=== PATIENT | female | born 2000 | race Asian ===

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

== ENCOUNTER 2021-09-08 16:37 | Inpatient (IN) | payer SELFPAY ==
--- NOTE | 2021-09-08 17:32 | Emergency Department Report ---
- General Chief complaint: Skin/Abscess/Foreign Body Stated complaint: ABCESS RT BREAST Source: patient Mode of arrival: Ambulatory Limitations: No Limitations - History of Present Illness Initial comments: Is a 21-year-old female presenting to the emergency department with concern for pain and swelling of the right breast. Patient reports she has history of having nipple piercings but does not currently have these in place. She states she first noticed the pain and swelling 3 days ago. She denies having any fevers. She denies family history of breast cancer. - Related Data Previous Rx's Medication Instructions Recorded Last Taken Type Amoxicillin 500 mg PO BID #20 capsule 08/19/18 Unknown Rx Cetirizine HCl [ZyrTEC] 10 mg PO DAILY #30 capsule 08/19/18 Unknown Rx Fluticasone [Flonase] 1 spray NS QDAY #1 bottle 08/19/18 Unknown Rx Amoxicillin [Amoxicillin TAB] 875 mg PO BID #20 tablet 09/05/18 Unknown Rx Ibuprofen [Motrin] 600 mg PO Q8H PRN #20 tablet 09/05/18 Unknown Rx Nystas/Diphen/Xyl Visc/Mylanta 15 ml MM Q6H PRN 5 Days ml 09/05/18 Unknown Rx [Magic Mouthwash] Allergies Allergy/AdvReac Type Severity Reaction Status Date / Time No Known Allergies Allergy Verified 09/08/21 17:19 Abscess Boil HPI - HPI Chief Complaint: Skin/Abscess/Foreign Body Stated Complaint: ABCESS RT BREAST Home Medications: Previous Rx's Medication Instructions Recorded Last Taken Type Amoxicillin 500 mg PO BID #20 capsule 08/19/18 Unknown Rx Cetirizine HCl [ZyrTEC] 10 mg PO DAILY #30 capsule 08/19/18 Unknown Rx Fluticasone [Flonase] 1 spray NS QDAY #1 bottle 08/19/18 Unknown Rx Amoxicillin [Amoxicillin TAB] 875 mg PO BID #20 tablet 09/05/18 Unknown Rx Ibuprofen [Motrin] 600 mg PO Q8H PRN #20 tablet 09/05/18 Unknown Rx Nystas/Diphen/Xyl Visc/Mylanta 15 ml MM Q6H PRN 5 Days ml 09/05/18 Unknown Rx [Magic Mouthwash] Allergies/Adverse Reactions: Allergies Allergy/AdvReac Type Severity Reaction Status Date / Time No Known Allergies Allergy Verified 09/08/21 17:19 ED Review of Systems ROS: Stated complaint: ABCESS RT BREAST Other details as noted in HPI Constitutional: denies: chills, fever Eyes: denies: eye pain, eye discharge, vision change ENT: denies: ear pain, throat pain Respiratory: denies: cough, shortness of breath, wheezing Cardiovascular: denies: chest pain, palpitations Endocrine: no symptoms reported Gastrointestinal: denies: abdominal pain, nausea, diarrhea Genitourinary: denies: urgency, dysuria, discharge Musculoskeletal: denies: back pain, joint swelling, arthralgia Skin: other (abscess). denies: rash, lesions Neurological: denies: headache, weakness, paresthesias Psychiatric: denies: anxiety, depression Hematological/Lymphatic: denies: easy bleeding, easy bruising ED Past Medical Hx - Past Medical History Previous Medical History?: No - Surgical History Past Surgical History?: Yes Additional Surgical History: left wrist broken, repaired surgivally - Social History Smoking Status: Never Smoker Substance Use Type: Alcohol, Marijuana - Medications Home Medications: Home Medications Medication Instructions Recorded Confirmed Last Taken Type Amoxicillin 500 mg PO BID #20 capsule 08/19/18 Unknown Rx Cetirizine HCl [ZyrTEC] 10 mg PO DAILY #30 capsule 08/19/18 Unknown Rx Fluticasone [Flonase] 1 spray NS QDAY #1 bottle 08/19/18 Unknown Rx Amoxicillin [Amoxicillin TAB] 875 mg PO BID #20 tablet 09/05/18 Unknown Rx Ibuprofen [Motrin] 600 mg PO Q8H PRN #20 tablet 09/05/18 Unknown Rx Nystas/Diphen/Xyl Visc/Mylanta 15 ml MM Q6H PRN 5 Days ml 09/05/18 Unknown Rx [Magic Mouthwash] ED Physical Exam - General Limitations: No Limitations General appearance: alert, in no apparent distress - Head Head exam: Present: atraumatic, normocephalic - Eye Eye exam: Present: normal appearance - ENT ENT exam: Present: mucous membranes moist - Neck Neck exam: Present: normal inspection - Respiratory Respiratory exam: Present: normal lung sounds bilaterally. Absent: respiratory distress - Cardiovascular Cardiovascular Exam: Present: regular rate, normal rhythm. Absent: systolic murmur, diastolic murmur, rubs, gallop - GI/Abdominal GI/Abdominal exam: Present: soft, normal bowel sounds. Absent: distended, tenderness - Extremities Exam Extremities exam: Present: normal inspection - Back Exam Back exam: Present: normal inspection - Neurological Exam Neurological exam: Present: alert, oriented X3 - Psychiatric Psychiatric exam: Present: normal affect, normal mood - Skin Skin exam: Present: warm, dry, intact, normal color, rash, other (There is approximately 3 x 3 cm area of fluctuance that is at the 3 o'clock position at the areola of the right breast. There is a redness that extends up into the breast. There is tenderness noted.) ED Course Vital Signs 09/08/21 09/08/21 09/08/21 16:52 17:05 17:25 Temperature 98.8 F Pulse Rate 119 H 109 H 105 H Respiratory 18 21 15 Rate Blood Pressure 150/91 Blood Pressure 125/78 [Right] O2 Sat by Pulse 99 100 100 Oximetry 09/08/21 09/08/21 09/08/21 17:30 17:46 18:00 Temperature Pulse Rate 96 H 96 H 99 H Respiratory 15 13 17 Rate Blood Pressure 141/66 147/85 Blood Pressure [Right] O2 Sat by Pulse 99 99 99 Oximetry 09/08/21 09/08/21 09/08/21 18:16 18:30 18:46 Temperature Pulse Rate 105 H 105 H 106 H Respiratory 12 17 15 Rate Blood Pressure 129/70 167/83 150/75 Blood Pressure [Right] O2 Sat by Pulse 100 100 99 Oximetry 09/08/21 19:00 Temperature Pulse Rate 105 H Respiratory 16 Rate Blood Pressure 131/80 Blood Pressure [Right] O2 Sat by Pulse 100 Oximetry - Consultations Consultation #1: 09/08/21 17:[address] Humphreys who recommends patient be admitted. Her partner has specialization in breast surgery and will evaluate the patient in the morning. She recommends that we start patient on clindamycin and obtain a formal ultrasound. ED Medical Decision Making - Lab Data Result diagrams: 09/08/21 17:48 09/08/21 18:01 - Medical Decision Making Patient is a 21-year-old female presents emergency department complaint of swelling and pain to the right breast. On exam patient has a area of fluct uance. Bedside ultrasound reveals pocket of pus. Given this plan to discuss with general surgery on-call. Patient will likely require referral to a breast surgeon. Critical care attestation.: If time is entered above; I have spent that time in minutes in the direct care of this critically ill patient, excluding procedure time. ED Disposition Clinical Impression: Breast abscess, Cellulitis of breast Disposition: 09 ADMITTED INPATIENT Is pt being admited?: Yes Does the pt Need Aspirin: No Condition: Stable
[2021-09-08] MEDS ORDERED: SODIUM CHLORIDE 0.9% 1000 ML 1,000 ML IV ONE (17:48)
[2021-09-08 18:20] LABS: Basophils # (Auto) 0.1 K/mm3 (0.0-0.1); Basophils % (Auto) 0.8 % (0.0-1.8); Eosinophils # (Auto) 0.1 K/mm3 (0.0-0.4); Eosinophils % (Auto) 0.4 % (0.0-4.3); Hematocrit 41.2 % (30.3-42.9); Hemoglobin 13.5 gm/dl (10.1-14.3); Lymphocytes # (Auto) 2.1 K/mm3 (1.2-5.4); Lymphocytes % (Auto) 15.2 % (13.4-35.0); Mean Corpuscular HGB Conc 33 % (30-34); Mean Corpuscular Volume 90 fl (79-97); Monocytes % (Auto) 6.8 % (0.0-7.3); Platelet Count 352 K/mm3 (140-440); Red Blood Count 4.58 M/mm3 (3.65-5.03); Red Cell Distribution Width 13.8 % (13.2-15.2)
[2021-09-08 18:42] LABS: Alanine Aminotransferase 10 units/L (7-56); Albumin 4.5 g/dL (3.9-5); Blood Urea Nitrogen 6 mg/dL (7-17); Calcium 9.5 mg/dL (8.4-10.2); Hemolysis Index 9
[2021-09-08 18:43] LABS: BUN/Creatinine Ratio 9
[2021-09-08 19:51] LABS: HCG Qualitative,Urine Negative (Negative)
--- NOTE | 2021-09-08 19:56 | History and Physical Report ---
History of Present Illness Date of examination: 09/08/21 Date of admission: September 08, 2021 Chief complaint: Right breast swelling and pain for 1 week History of present illness: 21-year-old -[place] female with no significant past medical history. Comes in for pain and swelling of the right. Patient recently had her nipples pierced after which she developed redness and swelling and pain over the last 3 days. No fever or chills. Pain is about 8 on a scale of 1-10. She went to see her physician who prescribed her amoxicillin. No exacerbating or relieving factors. - Past Medical History -- No - Surgical History --left wrist broken, repaired surgically - Social History --Smoking Status: Never Smoker --Substance Use Type: Alcohol, Marijuana -Family history --Htn Review of Systems ROS: Stated complaint: ABCESS RT BREAST Other details as noted in HPI Constitutional: denies: chills, fever Eyes: denies: eye pain, eye discharge, vision change ENT: denies: ear pain, throat pain Respiratory: denies: cough, shortness of breath, wheezing Cardiovascular chest right breast swelling and severe pain Endocrine: no symptoms reported Gastrointestinal: denies: abdominal pain, nausea, diarrhea Genitourinary: denies: urgency, dysuria, discharge Musculoskeletal: denies: back pain, joint swelling, arthralgia Skin: other (abscess). denies: rash, lesions Neurological: denies: headache, weakness, paresthesias Psychiatric: denies: anxiety, depression Hematological/Lymphatic: denies: easy bleeding, easy bruising Medications and Allergies Allergies Allergy/AdvReac Type Severity Reaction Status Date / Time No Known Allergies Allergy Verified 09/08/21 17:19 Home Medications Medication Instructions Recorded Confirmed Last Taken Type Amoxicillin 500 mg PO BID #20 capsule 08/19/18 Unknown Rx Cetirizine HCl [ZyrTEC] 10 mg PO DAILY #30 capsule 08/19/18 Unknown Rx Fluticasone [Flonase] 1 spray NS QDAY #1 bottle 08/19/18 Unknown Rx Amoxicillin [Amoxicillin TAB] 875 mg PO BID #20 tablet 09/05/18 Unknown Rx Ibuprofen [Motrin] 600 mg PO Q8H PRN #20 tablet 09/05/18 Unknown Rx Nystas/Diphen/Xyl Visc/Mylanta 15 ml MM Q6H PRN 5 Days ml 09/05/18 Unknown Rx [Magic Mouthwash] Exam - Constitutional Vitals: Temp Pulse Resp BP Pulse Ox 98.8 F 105 H 16 131/80 100 09/08/21 16:52 09/08/21 19:00 09/08/21 19:00 09/08/21 19:00 09/08/21 19:00 General appearance: Present: no acute distress, well-nourished - EENT Eyes: Present: PERRL ENT: hearing intact, clear oral mucosa - Neck Neck: Present: supple, normal ROM - Respiratory Respiratory effort: normal Respiratory: bilateral: CTA Details: Chest--right breast swollen and tender 6 cm X 6 cm - Cardiovascular Heart rate: 78 Rhythm: regular Heart Sounds: Present: S1 & S2. Absent: rub, click - Extremities Extremities: pulses symmetrical, No edema Peripheral Pulses: within normal limits - Abdominal General gastrointestinal: Present: soft, non-tender, non-distended, normal bowel sounds Female genitourinary: Present: normal - Rectal Rectal Exam: deferred - Integumentary Integumentary: Present: clear, warm, dry - Musculoskeletal Musculoskeletal: gait normal, strength equal bilaterally - Psychiatric Psychiatric: appropriate mood/affect, intact judgment & insight - Neurologic Neurologic: CNII-XII intact, moves all extremities - Allied Health Allied health notes reviewed: nursing, case management Results - Labs CBC & Chem 7: 09/08/21 17:48 09/08/21 18:01 Labs: Laboratory Last Values WBC 14.1 K/mm3 (4.5-11.0) H 09/08/21 17:48 RBC 4.58 M/mm3 (3.65-5.03) 09/08/21 17:48 Hgb 13.5 gm/dl (10.1-14.3) 09/08/21 17:48 Hct 41.2 % (30.3-42.9) 09/08/21 17:48 MCV 90 fl (79-97) 09/08/21 17:48 MCH 30 pg (28-32) 09/08/21 17:48 MCHC 33 % (30-34) 09/08/21 17:48 RDW 13.8 % (13.2-15.2) 09/08/21 17:48 Plt Count 352 K/mm3 (140-440) 09/08/21 17:48 Lymph % (Auto) 15.2 % (13.4-35.0) 09/08/21 17:48 [place] % (Auto) 6.8 % (0.0-7.3) 09/08/21 17:48 Eos % (Auto) 0.4 % (0.0-4.3) 09/08/21 17:48 Baso % (Auto) 0.8 % (0.0-1.8) 09/08/21 17:48 Lymph # (Auto) 2.1 K/mm3 (1.2-5.4) 09/08/21 17:48 [place] # (Auto) 1.0 K/mm3 (0.0-0.8) H 09/08/21 17:48 Eos # (Auto) 0.1 K/mm3 (0.0-0.4) 09/08/21 17:48 Baso # (Auto) 0.1 K/mm3 (0.0-0.1) 09/08/21 17:48 Seg Neutrophils % 76.8 % (40.0-70.0) H 09/08/21 17:48 Seg Neutrophils # 10.8 K/mm3 (1.8-7.7) H 09/08/21 17:48 Sodium 138 mmol/L (137-145) 09/08/21 18:01 Potassium 3.9 mmol/L (3.6-5.0) 09/08/21 18:01 Chloride 102.2 mmol/L (98-107) 09/08/21 18:01 Carbon Dioxide 22 mmol/L (22-30) 09/08/21 18:01 Anion Gap 18 mmol/L 09/08/21 18:01 BUN 6 mg/dL (7-17) L 09/08/21 18:01 Creatinine 0.7 mg/dL (0.6-1.2) 09/08/21 18:01 Estimated GFR > 60 ml/min 09/08/21 18:01 BUN/Creatinine Ratio 9 % 09/08/21 18:01 Glucose 81 mg/dL (65-100) 09/08/21 18:01 Lactic Acid 0.90 mmol/L (0.7-2.0) 09/08/21 18:01 Calcium 9.5 mg/dL (8.4-10.2) 09/08/21 18:01 Total Bilirubin 0.40 mg/dL (0.1-1.2) 09/08/21 18:01 AST 12 units/L (5-40) 09/08/21 18:01 ALT 10 units/L (7-56) 09/08/21 18:01 Alkaline Phosphatase 58 units/L (35-129) 09/08/21 18:01 Total Protein 7.9 g/dL (6.3-8.2) 09/08/21 18:01 Albumin 4.5 g/dL (3.9-5) 09/08/21 18:01 Albumin/Globulin Ratio 1.3 % 09/08/21 18:01 Urine HCG, Qual Negative (Negative) 09/08/21 19:18 Short CBC 09/08/21 Range/Units 17:48 WBC 14.1 H (4.5-11.0) K/mm3 Hgb 13.5 (10.1-14.3) gm/dl Hct 41.2 (30.3-42.9) % Plt Count 352 (140-440) K/mm3 BMP 09/08/21 18:01 Sodium 138 Potassium 3.9 Chloride 102.2 Carbon Dioxide 22 BUN 6 L Creatinine 0.7 Glucose 81 Calcium 9.5 Liver Function 09/08/21 Range/Units 18:01 Total Bilirubin 0.40 (0.1-1.2) mg/dL AST 12 (5-40) units/L ALT 10 (7-56) units/L Alkaline Phosphatase 58 (35-129) units/L Albumin 4.5 (3.9-5) g/dL - Imaging and Cardiology Venous US: report reviewed Imaging and Cardiology: Breast ultrasound 4 cm X1 0.8 cm X4 0.0 cm complex hypoechoic structure in the right breast. 3 o'clock position. This is most consistent only represents abscess. Clinical correlation is recommended. Assessment and Plan Advance Directives: Yes (Full code) VTE prophylaxis?: Chemical Plan of care discussed with patient/family: Yes - Patient Problems (1) SIRS (systemic inflammatory response syndrome) Current Visit: Yes Status: Acute Plan to address problem: Patient has leukocytosis IV antibiotics (2) Abscess of right breast Current Visit: Yes Status: Acute Plan to address problem: IV antibiotics in the form of Unasyn and vancomycin Surgery consult requested Needs incision and drainage IR if necessary (3) Obesity (BMI 35.0-39.9 without comorbidity) Current Visit: Yes Status: Chronic Plan to address problem: Needs to follow-up with bariatric clinic Referral to bariatric clinic to be given--- Dr. aMrie (4) DVT prophylaxis Current Visit: Yes Status: Acute Plan to address problem: On anticoagulation GI prophylaxis (5) Advance care planning Current Visit: Yes Status: Acute Plan to address problem: Disease education conducted, care plan discussed, diagnosis discussed, prognosis discussed. Patient is full code. Patient acknowledged understanding and agreement with care plan. +30 minutes.
[2021-09-08] MEDS ORDERED: ONDANSETRON 4 MG/2 ML INJ IV PRN (19:57)
[2021-09-08] MEDS ORDERED: ACETAMINOPHEN 325 MG TAB PO PRN (19:57)
[2021-09-08] MEDS ORDERED: METOCLOPRAMIDE 10 MG/2 ML INJ IV PRN (19:57)
[2021-09-08] MEDS ORDERED: oxyCODONE /ACETAMINOPHEN 5-325MG TAB PO PRN (19:57)
[2021-09-08] MEDS ORDERED: NON-FORMULARY EACH (Cetirizine Hcl [Zyrtec 10mg Cap] 10 MG Capsule) PO SCH (20:00)
[2021-09-08] MEDS ORDERED: VANCOMYCIN PHARMACY TO DOSE IV SCH (21:00)
[2021-09-08] MEDS: MORPHINE 2 MG/1 ML INJ IV PRN (21:04)
--- NOTE | 2021-09-08 21:17 | Ultrasound Report ---
US breast RT limited INDICATION / CLINICAL INFORMATION: R breast abscess; 3oclock TECHNIQUE: Murray scale and Doppler sonographic evaluation of right breast was performed dedicated to t he region of clinical concern. Longitudinal and transverse imaging was performed. COMPARISON: None available. FINDINGS: 4.0 x 1.8 x 4.0 cm complex hypoechoic structure in the right breast at 3:00. This most likely represe nts abscess. Clinical correlation is recommended. Additionally, recommend follow-up with mammography, following resolution of acute process. Signer Name: Newton Tavarez MD Signed: 09/08/2021 9:13 PM Workstation Name: [id number]
[2021-09-08] MEDS ORDERED: VANCOMYCIN 2,000 MG in SODIUM CHLORIDE 0.9% 500 ML 500 ML IV ONE (22:00)
[2021-09-08] MEDS: SODIUM CHLORIDE 0.9% 1000 ML 1,000 ML IV SCH (23:13)
[2021-09-08] MEDS: AMPICILLIN/SULBACTA 3GM/100ML 3 GM/100 ML BAG IV SCH (23:13)
[2021-09-09] MEDS: AMPICILLIN/SULBACTA 3GM/100ML 3 GM/100 ML BAG IV SCH ×5 (00:18→23:23)
[2021-09-09] MEDS: FLUTICASONE PROPIONATE NASAL SPRAY 16 GM NS SCH ×2 (00:19→09:08)
[2021-09-09] MEDS: CETIRIZINE 10 MG TAB PO SCH ×2 (00:20→10:00)
[2021-09-09] MEDS: HEPARIN 5,000 UNIT/1 ML VIAL SUB-Q SCH ×3 (00:20→21:37)
[2021-09-09] MEDS: MORPHINE 2 MG/1 ML INJ IV PRN (01:00)
[2021-09-09 06:27] LABS: Basophils % (Auto) 0.4 % (0.0-1.8); Eosinophils # (Auto) 0.1 K/mm3 (0.0-0.4); Eosinophils % (Auto) 0.6 % (0.0-4.3); Hematocrit 38.6 % (30.3-42.9); Hemoglobin 12.7 gm/dl (10.1-14.3); Lymphocytes % (Auto) 14.2 % (13.4-35.0); Mean Corpuscular HGB Conc 33 % (30-34); Mean Corpuscular Volume 90 fl (79-97); Monocytes # (Auto) 1.1 K/mm3 (0.0-0.8); Monocytes % (Auto) 7.5 % (0.0-7.3); Platelet Count 344 K/mm3 (140-440); Red Blood Count 4.28 M/mm3 (3.65-5.03); Red Cell Distribution Width 13.7 % (13.2-15.2)
[2021-09-09 06:41] LABS: Alanine Aminotransferase 7 units/L (7-56); Albumin 3.6 g/dL (3.9-5); BUN/Creatinine Ratio 9; Blood Urea Nitrogen 6 mg/dL (7-17); Calcium 8.6 mg/dL (8.4-10.2); Hemolysis Index 3
[2021-09-09] MEDS: VANCOMYCIN 1,500 MG in SODIUM CHLORIDE 0.9% 500 ML 500 ML IV SCH ×2 (13:21→23:23)
--- NOTE | 2021-09-09 21:33 | Progress Note ---
Hospitalist Physical - Constitutional Vitals: Temp Pulse Resp BP Pulse Ox 98.4 F 101 H 18 134/79 98 09/09/21 05:03 09/09/21 05:03 09/09/21 20:28 09/09/21 05:03 09/09/21 20:28 General appearance: Present: no acute distress, well-nourished Results - Labs CBC & Chem 7: 09/09/21 05:23 09/09/21 05:23 Labs: Laboratory Last Values WBC 14.2 K/mm3 (4.5-11.0) H 09/09/21 05:23 RBC 4.28 M/mm3 (3.65-5.03) 09/09/21 05:23 Hgb 12.7 gm/dl (10.1-14.3) 09/09/21 05:23 Hct 38.6 % (30.3-42.9) 09/09/21 05:23 MCV 90 fl (79-97) 09/09/21 05:23 MCH 30 pg (28-32) 09/09/21 05:23 MCHC 33 % (30-34) 09/09/21 05:23 RDW 13.7 % (13.2-15.2) 09/09/21 05:23 Plt Count 344 K/mm3 (140-440) 09/09/21 05:23 Lymph % (Auto) 14.2 % (13.4-35.0) 09/09/21 05:23 [place] % (Auto) 7.5 % (0.0-7.3) H 09/09/21 05:23 Eos % (Auto) 0.6 % (0.0-4.3) 09/09/21 05:23 Baso % (Auto) 0.4 % (0.0-1.8) 09/09/21 05:23 Lymph # (Auto) 2.0 K/mm3 (1.2-5.4) 09/09/21 05:23 [place] # (Auto) 1.1 K/mm3 (0.0-0.8) H 09/09/21 05:23 Eos # (Auto) 0.1 K/mm3 (0.0-0.4) 09/09/21 05:23 Baso # (Auto) 0.0 K/mm3 (0.0-0.1) 09/09/21 05:23 Seg Neutrophils % 77.3 % (40.0-70.0) H 09/09/21 05:23 Seg Neutrophils # 11.0 K/mm3 (1.8-7.7) H 09/09/21 05:23 Sodium 139 mmol/L (137-145) 09/09/21 05:23 Potassium 4.2 mmol/L (3.6-5.0) 09/09/21 05:23 Chloride 106.8 mmol/L (98-107) 09/09/21 05:23 Carbon Dioxide 21 mmol/L (22-30) L 09/09/21 05:23 Anion Gap 15 mmol/L 09/09/21 05:23 BUN 6 mg/dL (7-17) L 09/09/21 05:23 Creatinine 0.7 mg/dL (0.6-1.2) 09/09/21 05:23 Estimated GFR > 60 ml/min 09/09/21 05:23 BUN/Creatinine Ratio 9 % 09/09/21 05:23 Glucose 88 mg/dL (65-100) 09/09/21 05:23 Lactic Acid 0.90 mmol/L (0.7-2.0) 09/08/21 18:01 Calcium 8.6 mg/dL (8.4-10.2) 09/09/21 05:23 Total Bilirubin 0.30 mg/dL (0.1-1.2) 09/09/21 05:23 AST 10 units/L (5-40) 09/09/21 05:23 ALT 7 units/L (7-56) 09/09/21 05:23 Alkaline Phosphatase 51 units/L (35-129) 09/09/21 05:23 Total Protein 6.5 g/dL (6.3-8.2) 09/09/21 05:23 Albumin 3.6 g/dL (3.9-5) L 09/09/21 05:23 Albumin/Globulin Ratio 1.2 % 09/09/21 05:23 Urine HCG, Qual Negative (Negative) 09/08/21 19:18 Microbiology: Microbiology 09/08/21 18:01 Peripheral/Venous Blood Culture - Preliminary NO GROWTH AFTER 24 HOURS 09/08/21 18:01 Peripheral/Venous Blood Culture - Preliminary NO GROWTH AFTER 24 HOURS [place]/IV: Voiding Method Toilet Active Medications - Current Medications Current Medications: Generic Name Dose Route Start Last Admin Trade Name Freq PRN Reason Stop Dose Admin Acetaminophen 650 mg 09/08/21 19:57 Acetaminophen 325 Mg Tab PO Q4H PRN Pain MILD(1-3)/Fever >100.5/CERDA Cetirizine HCl 10 mg 09/08/21 20:00 09/09/21 10:00 Cetirizine 10 Mg Tab PO Not Given DAILY [facility] Fluticasone Propionate 50 mcg 09/08/21 20:00 09/09/21 09:08 Fluticasone Propionate Nasal [place] 16 Gm NS Not Given QDAY [facility] Heparin Sodium (Porcine) 5,000 unit 09/08/21 22:00 09/09/21 10:31 Heparin 5,000 Unit/1 Ml Vial SUB-Q Not Given Q12HR FIOR Sodium Chloride 1,000 mls @ 75 mls/hr 09/08/21 20:00 09/08/21 23:13 Nacl 0.9% 1000 Ml IV 75 mls/hr DIRECT FIOR Administration Ampicillin Sodium/Sulbactam Sodium 3 gm in 100 mls @ 100 mls/hr 09/08/21 21:00 09/09/21 18:21 Unasyn/Ns 3 Gm/100 Ml IV 100 mls/hr Q6HR FIOR Administration Protocol Vancomycin HCl 1,500 mg/ 530 mls @ 333.333 mls/hr 09/09/21 12:00 09/09/21 13:21 Sodium Chloride IV 333.333 mls/hr Q12H FIOR Administration Metoclopramide HCl 10 mg 09/08/21 19:57 09/08/21 21:05 Metoclopramide 10 Mg/2 Ml Inj IV 10 mg Q6H PRN Administration Nausea And Vomiting Morphine Sulfate 2 mg 09/08/21 19:57 09/09/21 01:00 Morphine 2 Mg/1 Ml Inj IV 2 mg Q4H PRN Administration Pain, Moderate (4-6) Ondansetron HCl 4 mg 09/08/21 19:57 Ondansetron 4 Mg/2 Ml Inj IV Q8H PRN Nausea And Vomiting Oxycodone/Acetaminophen 1 tab 09/08/21 19:57 Oxycodone /Acetaminophen 5-325mg Tab PO Q6H PRN Pain, Moderate (4-6) Sodium Chloride 10 ml 09/08/21 22:00 09/09/21 13:33 Sodium Chloride 0.9% 10 Ml Flush Syringe IV 10 ml BID FIOR Administration Sodium Chloride 10 ml 09/08/21 19:57 Sodium Chloride 0.9% 10 Ml Flush Syringe IV PRN PRN LINE FLUSH
[2021-09-09] MEDS: SODIUM CHLORIDE 0.9% 1000 ML 1,000 ML IV SCH (21:39)
[2021-09-10] MEDS: AMPICILLIN/SULBACTA 3GM/100ML 3 GM/100 ML BAG IV SCH ×2 (05:07→11:34)
--- NOTE | 2021-09-10 09:02 | Consultation ---
History of Present Illness Consult date: 09/09/21 Requesting physician: QUENTIN PIPER Chief complaint: right breast abscess - History of present illness History of present illness: Is a 21-year-old female presenting to the emergency department with concern for pain and swelling of the right breast. Patient reports she has history of having nipple piercings but does not currently have these in place. She states she first noticed the pain and swelling 3 days ago. She denies having any fevers. She denies family history of breast cancer. US confirms 3cm collection of fluid near the NAC of the right breast medially. Medications and Allergies Allergies Allergy/AdvReac Type Severity Reaction Status Date / Time No Known Allergies Allergy Verified 09/08/21 17:19 Home Medications Medication Instructions Recorded Confirmed Last Taken Type Amoxicillin 500 mg PO BID #20 capsule 08/19/18 Unknown Rx Cetirizine HCl [ZyrTEC] 10 mg PO DAILY #30 capsule 08/19/18 Unknown Rx Fluticasone [Flonase] 1 spray NS QDAY #1 bottle 08/19/18 Unknown Rx Amoxicillin [Amoxicillin TAB] 875 mg PO BID #20 tablet 09/05/18 Unknown Rx Ibuprofen [Motrin] 600 mg PO Q8H PRN #20 tablet 09/05/18 Unknown Rx Nystas/Diphen/Xyl Visc/Mylanta 15 ml MM Q6H PRN 5 Days ml 09/05/18 Unknown Rx [Magic Mouthwash] Active Meds: Active Medications Acetaminophen (Acetaminophen 325 Mg Tab) 650 mg PO Q4H PRN PRN Reason: Pain MILD(1-3)/Fever >100.5/CERDA Cetirizine HCl (Cetirizine 10 Mg Tab) 10 mg PO DAILY [facility] Last Admin: 09/09/21 10:00 Dose: Not Given Fluticasone Propionate (Fluticasone Propionate Nasal [place] 16 Gm) 50 mcg NS QDAY [facility] Last Admin: 09/09/21 09:08 Dose: Not Given Heparin Sodium (Porcine) (Heparin 5,000 Unit/1 Ml Vial) 5,000 unit SUB-Q Q12HR [facility] Last Admin: 09/09/21 21:37 Dose: 5,000 unit Sodium Chloride (Nacl 0.9% 1000 Ml) 1,000 mls @ 75 mls/hr IV DIRECT [facility] Last Admin: 09/09/21 21:39 Dose: 75 mls/hr Ampicillin Sodium/Sulbactam Sodium (Unasyn/Ns 3 Gm/100 Ml) 3 gm in 100 mls @ 100 mls/hr IV Q6HR [facility]; Protocol Last Admin: 09/10/21 05:07 Dose: 100 mls/hr Vancomycin HCl 1,500 mg/ (Sodium Chloride) 530 mls @ 333.333 mls/hr IV Q12H [facility] Last Admin: 09/09/21 23:23 Dose: 333.333 mls/hr Metoclopramide HCl (Metoclopramide 10 Mg/2 Ml Inj) 10 mg IV Q6H PRN PRN Reason: Nausea And Vomiting Last Admin: 09/08/21 21:05 Dose: 10 mg Morphine Sulfate (Morphine 2 Mg/1 Ml Inj) 2 mg IV Q4H PRN PRN Reason: Pain, Moderate (4-6) Last Admin: 09/09/21 01:00 Dose: 2 mg Ondansetron HCl (Ondansetron 4 Mg/2 Ml Inj) 4 mg IV Q8H PRN PRN Reason: Nausea And Vomiting Oxycodone/Acetaminophen (Oxycodone /Acetaminophen 5-325mg Tab) 1 tab PO Q6H PRN PRN Reason: Pain, Moderate (4-6) Sodium Chloride (Sodium Chloride 0.9% 10 Ml Flush Syringe) 10 ml IV BID [facility] Last Admin: 09/09/21 21:38 Dose: 10 ml Sodium Chloride (Sodium Chloride 0.9% 10 Ml Flush Syringe) 10 ml IV PRN PRN PRN Reason: LINE FLUSH Exam Vital Signs Temp Pulse Resp BP Pulse Ox 98.8 F 119 H 18 125/78 99 09/08/21 16:52 09/08/21 16:52 09/08/21 16:52 09/08/21 16:52 09/08/21 16:52 - General physical appearance Positive: well developed - Eyes Positive: PERRL - Neck Positive: no masses, no bruits, trachea midline - Respiratory Positive: normal expansion - Cardiovascular Rhythm: regular - Extremities Extremities: no ischemia, No edema - Breasts Breasts: swelling (Pain and swelling with induration noted under the nipple areolar complex at roughly 3 o'clock position of the right breast), mass, no discharge, skin changes, tender, other - Abdomen Abdomen: Present: soft. Absent: tender - Integumentary no rash - Neurologic Neurologic: alert and oriented to time, place and person, motor strength and sensation are grossly intact, CN II-XII intact Results - Labs 09/09/21 05:23 09/09/21 05:23 Assessment and Plan 21-year-old [place] -[place] lady with a right breast abscess ultrasound- guided aspiration and irrigation with normal saline was completed at bedside. Continue IV antibiotics for now. Follow-up wound cultures.
--- NOTE | 2021-09-10 09:03 | Procedure Note ---
Date of procedure: 09/09/21 Pre-op diagnosis: Right breast abscess Post-op diagnosis: same Procedure: Ultrasound-guided aspiration of right breast abscess 3 o'clock position under the nipple areolar complex Findings: 3 cm collection of fluid noted in the right breast under the nipple areolar complex at 3 o'clock position. Anesthesia: local Surgeon: SANTOS MARLOW Estimated blood loss: none Pathology: list (Gram stain and wound culture sensitivity) Specimen disposition: to lab Condition: stable Disposition: floor
[2021-09-10] MEDS: HEPARIN 5,000 UNIT/1 ML VIAL SUB-Q SCH (11:34)
[2021-09-10] MEDS: FLUTICASONE PROPIONATE NASAL SPRAY 16 GM NS SCH (11:34)
[2021-09-10] MEDS: CETIRIZINE 10 MG TAB PO SCH (11:34)
[2021-09-10] MEDS: VANCOMYCIN 1,500 MG in SODIUM CHLORIDE 0.9% 500 ML 500 ML IV SCH (11:35)
[2021-09-10 13:16] VITALS: BP 143/88
== END 2021-09-10 15:20 | disposition home or self-care (01) | DRG 584 ==
LOC: ED 16:37 → 3A 19:39
PROVIDERS: ADMIT Internal Medicine; ATTEND Internal Medicine
PROC: 0H9T0ZZ Drainage of Right Breast, Open Approach (ICD-10-PCS; principal; 2021-09-09)
DX: N61.1 Abscess of the breast and nipple (principal); R65.10 Systemic inflammatory response syndrome (SIRS) of non-infectious origin without acute organ dysfunction; N61.0 Mastitis without abscess; E66.9 Obesity, unspecified; Z68.37 Body mass index [BMI] 37.0-37.9, adult
CPT/HCPCS: 36415; 80053; 81025; 82140; 85025; 87040; 87116; G0378; J3490; J7502; Q0162; J0295; J1644; J2270; J2765; J3370; J7030; J7040

== ENCOUNTER 2021-12-06 11:14 | Emergency (ER) | payer SELFPAY ==
[2021-12-06 12:29] VITALS: BP 135/86
--- NOTE | 2021-12-06 13:56 | Emergency Department Report ---
ED Recheck HPI - General Chief Complaint: Skin/Abscess/Foreign Body Stated Complaint: CYST R BREAST Time Seen by Provider: 12/06/21 13:53 Source: patient Mode of arrival: Ambulatory Limitations: No Limitations - History of Present Illness Initial Comments: 21 yo aa comes to ER with a/c r breast cellulitis. no abscess. no fever or chills. under care of Dr Dino HUNT Complaint: wound re-check -: Gradual Initial Visit For: cellulitis Symptoms Since Prior Visit: no new symptoms - Related Data Previous Rx's Medication Instructions Recorded Last Taken Type Amoxicillin 500 mg PO BID #20 capsule 08/19/18 Unknown Rx Cetirizine HCl [ZyrTEC] 10 mg PO DAILY #30 capsule 08/19/18 Unknown Rx Fluticasone [Flonase] 1 spray NS QDAY #1 bottle 08/19/18 Unknown Rx Amoxicillin [Amoxicillin TAB] 875 mg PO BID #20 tablet 09/05/18 Unknown Rx Ibuprofen [Motrin] 600 mg PO Q8H PRN #20 tablet 09/05/18 Unknown Rx Nystas/Diphen/Xyl Visc/Mylanta 15 ml MM Q6H PRN 5 Days ml 09/05/18 Unknown Rx [Magic Mouthwash] Sulfamethoxazole/Trimethoprim 1 each PO BID #24 09/10/21 Unknown Rx [Bactrim DS TAB] cephALEXin [Keflex] 500 mg PO Q12HR #20 cap 12/06/21 Unknown Rx Allergies Allergy/AdvReac Type Severity Reaction Status Date / Time No Known Allergies Allergy Verified 09/08/21 17:19 ED Review of Systems ROS: Stated complaint: CYST R BREAST Other details as noted in HPI Comment: All other systems reviewed and negative ED Past Medical Hx - Past Medical History Previous Medical History?: Yes Hx Congestive Heart Failure: No Hx Diabetes: No Hx Asthma: No Hx COPD: No Hx HIV: No - Surgical History Past Surgical History?: Yes Additional Surgical History: left wrist broken, repaired surgivally - Family History Family history: no significant - Social History Smoking Status: Current Some Day Smoker - Medications Home Medications: Home Medications Medication Instructions Recorded Confirmed Last Taken Type Amoxicillin 500 mg PO BID #20 capsule 08/19/18 Unknown Rx Cetirizine HCl [ZyrTEC] 10 mg PO DAILY #30 capsule 08/19/18 Unknown Rx Fluticasone [Flonase] 1 spray NS QDAY #1 bottle 08/19/18 Unknown Rx Amoxicillin [Amoxicillin TAB] 875 mg PO BID #20 tablet 09/05/18 Unknown Rx Ibuprofen [Motrin] 600 mg PO Q8H PRN #20 tablet 09/05/18 Unknown Rx Nystas/Diphen/Xyl Visc/Mylanta 15 ml MM Q6H PRN 5 Days ml 09/05/18 Unknown Rx [Magic Mouthwash] Sulfamethoxazole/Trimethoprim 1 each PO BID #24 09/10/21 Unknown Rx [Bactrim DS TAB] cephALEXin [Keflex] 500 mg PO Q12HR #20 cap 12/06/21 Unknown Rx ED Physical Exam - General Limitations: No Limitations General appearance: alert, in no apparent distress - Head Head exam: Present: atraumatic, normocephalic - Eye Eye exam: Present: normal appearance - ENT ENT exam: Present: mucous membranes moist - Neck Neck exam: Present: normal inspection - Respiratory Respiratory exam: Present: normal lung sounds bilaterally. Absent: respiratory distress - Cardiovascular Cardiovascular Exam: Present: regular rate, normal rhythm. Absent: systolic murmur, diastolic murmur, rubs, gallop - GI/Abdominal GI/Abdominal exam: Present: soft, normal bowel sounds - Extremities Exam Extremities exam: Present: normal inspection - Back Exam Back exam: Present: normal inspection - Neurological Exam Neurological exam: Present: alert, oriented X3 - Psychiatric Psychiatric exam: Present: normal affect, normal mood - Skin Skin exam: Present: warm, dry, intact, normal color, other. Absent: rash ED Course Vital Signs 12/06/21 12:23 Temperature 98.7 F Pulse Rate 92 H Respiratory 16 Rate Blood Pressure 135/86 [Left] O2 Sat by Pulse 100 Oximetry ED Recheck MDM - Core Measures Measure Exclusions: not indicated - Differential Diagnosis Wound Recheck - Medical Decision Making a/c cellulitis right breast 1x 2 area of red skin; no drainage (12-3) of right breast no fever sees Dr Sun; has appnt David given keflex educated on wound care dc home with dc plan of care verbalizes understanding of plan of care including diet, meds, activity and follow up Vital Signs 12/06/21 12:23 Temperature 98.7 F Pulse Rate 92 H Respiratory 16 Rate Blood Pressure 135/86 [Left] O2 Sat by Pulse 100 Oximetry Critical care attestation.: If time is entered above; I have spent that time in minutes in the direct care of this critically ill patient, excluding procedure time. ED Disposition Clinical Impression: Cellulitis of breast Disposition: 01 HOME / SELF CARE / HOMELESS Is pt being admited?: No Does the pt Need Aspirin: No Condition: Stable Additional Instructions: FOLLOW UP WITH DR SUN SCHEDULED MED ORDERED UNTIL GONE WARM COMPRESSES Prescriptions: cephALEXin [Keflex] 500 mg PO Q12HR #20 cap Referrals: ANNIE KURTZ MD [Staff Physician] - 3-5 Days Forms: Work/School Release Form(ED) Time of Disposition: 13:55
== END 2021-12-06 22:00 | disposition home or self-care (01) ==
LOC: ED 11:14
DX: N61.0 Mastitis without abscess (principal); F17.200 Nicotine dependence, unspecified, uncomplicated
CPT/HCPCS: 99282

== ENCOUNTER 2021-12-09 14:00 | Outpatient (CLI) | payer SELFPAY | END 2021-12-09 14:01 | disposition home or self-care (01) | LOC: LAB 14:00 | PROVIDERS: ATTEND Surgery | DX: N61.1 Abscess of the breast and nipple (principal) | CPT/HCPCS: 87075; 87116 ==